=== PATIENT | male | born 1965 | race African-American/Black ===

== ENCOUNTER 2023-11-03 21:51 | Emergency (ER) | payer MEDICAID ==
[~2023-11-03] VITALS: Ht 182.9 cm; Wt 78.0 kg
[~2023-11-03 21:51] MED LIST: AMLO10TA80 MT; ARIP400S3 IM; MIRA25TA PO; NITR0.4T49 SL; P50 MT; PANT40TA51 MT; QUET100T MT; SENN-257 MT; TAMS-11 PO; TERB250T88 MT; VALP250C3 MT; [UNRECOGNIZED DRUG - CODE] PO
[2023-11-03 22:03] VITALS: O2SAT 97
[2023-11-03] MEDS: SODIUM CHLORIDE 0.9% 1,000 ML IV ONE (22:59)
[2023-11-03] MEDS: PANTOPRAZOLE SODIUM 40 MG/VIAL IV ONE (23:00)
[2023-11-03] MEDS: CEFTRIAXONE 1GM/50ML 50 ML IV ONE (23:56)
[2023-11-04 00:26] LABS: BASOPHILS % 0.2 % (0.0-2.0); HEMATOCRIT. 38.2 % (42.0-52.0); HEMOGLOBIN. 12.6 g/dL (14.0-18.0); LYMPHOCYTES % 8.1 % (20.0-50.0); MEAN CORPUSCULAR HEMOGLOBIN 29.6 pg (28.0-32.0); MEAN CORPUSCULAR HGB CONC 33.1 g/dL (31.0-37.0); MEAN CORPUSCULAR VOLUME 89.3 fL (80.0-94.0); MEAN PLATELET VOLUME 8.1 fl (7.4-10.4); MONOCYTES % 3.5 % (2.0-8.0); NEUTROPHILS % 88.2 % (40.0-76.0); PLATELET 336 x1000/uL (130-400); RED BLOOD CELL COUNT 4.28 mill/uL (4.7-6.1); RED CELL DISTRIBUTION WIDTH 13.9 % (11.6-14.6)
[2023-11-04 00:41] LABS: ALANINE AMINOTRANSFERASE 15 IU/L (10-49); ALBUMIN 4.3 g/dL (3.2-4.8); ASPARTATE AMINOTRANSFERASE 27 IU/L (<34); CALCIUM 9.2 mg/dL (8.7-10.4); CARBON DIOXIDE 27 mEq/L (21-32); CHLORIDE 106 mEq/L (98-107); CREATININE 1.1 mg/dL (0.6-1.3); GLUCOSE 97 mg/dL (70-105); PHOSPHORUS 2.5 mg/dL (2.5-4.9); POTASSIUM 4.3 mEq/L (3.5-5.1); PROTEIN TOTAL 6.8 g/dL (6.0-8.3); SODIUM 139 mEq/L (136-145); UREA NITROGEN BLOOD 17 mg/dL (9-23)
[2023-11-04 00:46] LABS: CLARITY URINE CLEAR (CLEAR); COLOR URINE YELLOW (YELLOW); GLUCOSE URINE NEGATIVE (NEGATIVE); KETONES URINE TRACE (NEGATIVE); LEUKOCYTE ESTERASE URINE NEGATIVE (NEGATIVE); NITRITE URINE NEGATIVE (NEGATIVE); OCCULT BLOOD URINE NEGATIVE (NEGATIVE); PROTEIN URINE TRACE (NEGATIVE); SPECIFIC GRAVITY URINE 1.018 (1.005-1.030)
[2023-11-04 01:11] LABS: BACTERIA URINE TRACE; RBC URINE NONE SEEN /hpf (0-2); SQUAMOUS EPITHELIAL CELL URINE NONE SEEN /lpf (RARE/1+); WBC URINE 0-2 /hpf (0-2)
[2023-11-04 01:39] LABS: PROTHROMBIN TIME 10.9 sec (9.6-11.0)
[2023-11-04 08:10] VITALS: BP 118/84; PULSE 67; RESP 18; TEMP 97.1
== END 2023-11-04 08:38 | disposition admitted as inpatient to this hospital (09) ==
LOC: ER 21:51
DX: K92.2 Gastrointestinal hemorrhage, unspecified (principal); F31.9 Bipolar disorder, unspecified; J44.9 Chronic obstructive pulmonary disease, unspecified; I10 Essential (primary) hypertension; Z86.73 Personal history of transient ischemic attack (TIA), and cerebral infarction without residual deficits
CPT/HCPCS: 99285; 96365; 71045; 96375; 80053; 83605; 83735; 84100; 85025; 85610; 86850; 86900; 86901; 87040; 36415; 84145; 93005; 81003; 87086; J0696; C9113; J7030